=== PATIENT | male | born 1965 | race Caucasian/White ===

== ENCOUNTER 2017-06-21 07:52 | Outpatient (CLI) | payer OTHER | END 2017-06-21 08:01 | disposition home or self-care (01) | LOC: LAB 07:52 | DX: R06.09 Other forms of dyspnea (principal); J06.9 Acute upper respiratory infection, unspecified; J45.998 Other asthma; J30.89 Other allergic rhinitis ==

== ENCOUNTER → 2017-10-31 | Emergency (ER) | payer OTHER | END | disposition left against medical advice (07) | LOC: ER 09:44 | DX: Z53.20 Procedure and treatment not carried out because of patient's decision for unspecified reasons (principal) ==

== ENCOUNTER 2017-11-22 08:04 | Outpatient (CLI) | payer OTHER | END 2017-11-22 08:16 | disposition home or self-care (01) | LOC: LAB 08:04 | DX: N39.0 Urinary tract infection, site not specified (principal); R80.9 Proteinuria, unspecified; Z12.11 Encounter for screening for malignant neoplasm of colon; N40.0 Benign prostatic hyperplasia without lower urinary tract symptoms; Z12.5 Encounter for screening for malignant neoplasm of prostate; E78.2 Mixed hyperlipidemia; I11.9 Hypertensive heart disease without heart failure; R06.00 Dyspnea, unspecified ==

== ENCOUNTER → 2020-02-27 | Day surgery (SDC) | payer OTHER | END | disposition home or self-care (01) | LOC: ADM 02-22 13:15 → AMB-ENDOS 06:45 | PROVIDERS: ATTEND Colon & Rectal Surgery | DX: K63.5 Polyp of colon (principal); K64.8 Other hemorrhoids; Z12.11 Encounter for screening for malignant neoplasm of colon ==

== ENCOUNTER 2020-12-02 08:00 | Outpatient (CLI) | payer OTHER | END 2020-12-02 08:30 | disposition home or self-care (01) | LOC: PPH VACUNA 08:00 | PROVIDERS: ATTEND Emergency Medicine Pediatric Emergency Medicine | DX: Z23 Encounter for immunization (principal) ==

== ENCOUNTER 2021-06-30 08:00 | Outpatient (CLI) | payer OTHER | END 2021-06-30 08:30 | disposition home or self-care (01) | LOC: PPH VACUNA 08:00 | PROVIDERS: ATTEND Emergency Medicine Pediatric Emergency Medicine | DX: Z23 Encounter for immunization (principal) ==